=== PATIENT | male | born 1950 | race Caucasian/White ===

== ENCOUNTER 2017-04-19 12:39 | Day surgery (SDC) | payer MEDICARE, BC ==
[2017-04-19] MEDS ORDERED: PROPOFOL 60 ML (14:42)
[2017-04-19] MEDS ORDERED: LIDOCAINE 2% (SDV) 5 ML INJ (14:42)
== END 2017-04-19 17:35 | disposition home or self-care (01) ==
LOC: GIL 12:39
DX: D12.3 Benign neoplasm of transverse colon (principal); K64.8 Other hemorrhoids
CPT/HCPCS: 45385; 88305